=== PATIENT | male | born 1995 ===

== ENCOUNTER → 2020-09-21 | Outpatient (CLI) | payer SELFPAY ==
[~2020-09-21] MED LIST: ALBUIS INH; AZIT250 PO; DELTASONE20 MG PO; FLUT110OIA INH; Flonase 0.05% N16 GM INH; LORA10 PO
== END | disposition home or self-care (01) ==
LOC: LAB 11:30 → LAB SHORT 11:30
DX: J02.9 Acute pharyngitis, unspecified (principal)
CPT/HCPCS: 87081